=== PATIENT | female | born 1955 | race Hispanic/Latino ===

== ENCOUNTER 2024-03-21 05:54 | Day surgery (SDC) | payer MEDICARE ==
[2024-03-21] VITALS (12 sets, daily range): BP systolic 122–165; BP diastolic 41–57; PULSE 52–60; RESP 15–17; TEMP 96.6–97.9
[~2024-03-21] VITALS: Ht 157.5 cm; Wt 72.6 kg
[2024-03-21] MEDS: 0.9% NACL 500ML IV.SOLN 500 ML IV ONE (07:08)
[2024-03-21] MEDS ORDERED: CLON1PAT14 TD (07:16)
[2024-03-21] MEDS ORDERED: LORA0.5T83 PO (07:25)
[2024-03-21] MEDS ORDERED: SEVE0.8P PO (07:25)
[2024-03-21] MEDS ORDERED: HYDR25TA67 PO (07:25)
[2024-03-21] MEDS ORDERED: CLON1PAT14 PO (07:25)
[2024-03-21] MEDS ORDERED: OMEP40CA21 PO (07:25)
[2024-03-21] MEDS ORDERED: PRAM0.129 PO (07:25)
[2024-03-21] MEDS ORDERED: LORA10TA7 PO (07:25)
[2024-03-21] MEDS ORDERED: ATOR40TA69 PO (07:25)
[2024-03-21] MEDS ORDERED: LABE300T4 PO (07:25)
[2024-03-21] MEDS ORDERED: PROP1DRO4 OP (07:25)
[2024-03-21] MEDS ORDERED: ASPI-1197 PO (07:25)
[2024-03-21] MEDS ORDERED: OMEG100014 PO (07:25)
[2024-03-21] MEDS ORDERED: CITA-107 PO (07:25)
[2024-03-21] MEDS ORDERED: FOLI0.8T22 PO (07:25)
[2024-03-21] MEDS ORDERED: PLEC3TAB2 PO (07:25)
[2024-03-21] MEDS ORDERED: ACET-2743 PO (07:25)
[2024-03-21] MEDS ORDERED: FERR324T4 PO (07:25)
[2024-03-21] MEDS ORDERED: AMLO-258 PO (07:25)
[2024-03-21] MEDS ORDERED: proPOFol 10 MG/ML 20ML VIAL IV ONE ×2 (08:07)
== END 2024-03-21 09:50 | disposition home or self-care (01) ==
LOC: DAH 05:54
PROVIDERS: ATTEND Internal Medicine Gastroenterology
DX: Z12.11 Encounter for screening for malignant neoplasm of colon (principal); K26.3 Acute duodenal ulcer without hemorrhage or perforation; K31.84 Gastroparesis; I12.0 Hypertensive chronic kidney disease with stage 5 chronic kidney disease or end stage renal disease; E11.22 Type 2 diabetes mellitus with diabetic chronic kidney disease; E78.5 Hyperlipidemia, unspecified; N18.6 End stage renal disease; I25.10 Atherosclerotic heart disease of native coronary artery without angina pectoris; Z79.82 Long term (current) use of aspirin; F41.9 Anxiety disorder, unspecified; F32.A Depression, unspecified; Z99.2 Dependence on renal dialysis; Z95.5 Presence of coronary angioplasty implant and graft; Z90.49 Acquired absence of other specified parts of digestive tract; Z98.49 Cataract extraction status, unspecified eye; Z79.899 Other long term (current) drug therapy; Z53.8 Procedure and treatment not carried out for other reasons
CPT/HCPCS: 43239; 82948 ×2; G0121; J7040; J2704 ×2; A4620; A4215 ×2; A4223; A4222; A4221; A4663; A4606; J3490

== ENCOUNTER 2024-06-27 05:41 | Day surgery (SDC) | payer MEDICARE ==
[2024-06-27] VITALS (12 sets, daily range): BP systolic 120–163; BP diastolic 36–57; PULSE 54–61; RESP 15–19; TEMP 97.1–97.3
[~2024-06-27] VITALS: Ht 157.5 cm; Wt 83.0 kg
[~2024-06-27 05:41] MED LIST: ACET-2743 PO; AMLO-258 PO; ASPI-1197 PO; ATOR40TA69 PO; CITA-107 PO; CLON1PAT14 PO; CLON1PAT14 TD; FERR324T4 PO; FOLI0.8T22 PO; HYDR25TA67 PO; LABE300T4 PO; LORA0.5T83 PO; LORA10TA7 PO; OMEG100014 PO; OMEP40CA21 PO; PLEC3TAB2 PO; PRAM0.129 PO; PROP1DRO4 OP; SEVE0.8P PO
[2024-06-27] MEDS ORDERED: AMLO-257 PO (06:38)
[2024-06-27] MEDS ORDERED: FISH1CAP27 PO (06:41)
[2024-06-27] MEDS ORDERED: CLON1PAT14 TP (06:41)
[2024-06-27] MEDS ORDERED: BENZ150C8 PO (06:44)
[2024-06-27] MEDS ORDERED: PLEC3TAB2 PO (06:44)
[2024-06-27] MEDS ORDERED: ONDA-105 PO (06:44)
[2024-06-27] MEDS ORDERED: MIRT-22 PO (06:44)
[2024-06-27] MEDS: 0.9% NACL 500ML IV.SOLN 500 ML IV ONE (06:57)
[2024-06-27] MEDS ORDERED: proPOFol 10 MG/ML 20ML VIAL IV ONE ×4 (07:14→07:42)
[2024-06-27] MEDS ORDERED: LIDOCAINE HCL 1% 20 ML VIAL ONE (07:15)
--- NOTE | 2024-06-27 09:09 | NUR ---
FULL AND COMPLETE DISCHARGE INSTRUCTIONS PROVIDED BOTH VERBALLY AND IN WRITING. ALL QUESTIONS ANSWERED. VOICED UNDERSTANDING TO GI PROCEDURE AND FOLLOW UP. PIV REMOVED WITH CATHETER TIP INTACT. W/C WITH FAMILY TO POV TO HOME.
== END 2024-06-27 09:17 | disposition home or self-care (01) ==
LOC: ENDO 05:41 → DAH 05:41 → ENDO 09:17
PROVIDERS: ATTEND Internal Medicine Gastroenterology
DX: K59.04 Chronic idiopathic constipation (principal); D12.3 Benign neoplasm of transverse colon; D12.0 Benign neoplasm of cecum; D12.4 Benign neoplasm of descending colon; D12.2 Benign neoplasm of ascending colon; D64.9 Anemia, unspecified; K26.3 Acute duodenal ulcer without hemorrhage or perforation; K29.30 Chronic superficial gastritis without bleeding; K31.84 Gastroparesis; I12.0 Hypertensive chronic kidney disease with stage 5 chronic kidney disease or end stage renal disease; E11.22 Type 2 diabetes mellitus with diabetic chronic kidney disease; N18.6 End stage renal disease; I25.10 Atherosclerotic heart disease of native coronary artery without angina pectoris; F41.9 Anxiety disorder, unspecified; F32.A Depression, unspecified; E66.9 Obesity, unspecified; Z90.49 Acquired absence of other specified parts of digestive tract; Z98.49 Cataract extraction status, unspecified eye; Z68.31 Body mass index [BMI] 31.0-31.9, adult; Z79.899 Other long term (current) drug therapy
CPT/HCPCS: 82948 ×2; 45380; 45385; J7040; J2704 ×4; A4620; A4649; A4215; A4223; A7002; A4222; A4221; A4663; J7030; A4606; J3490

== ENCOUNTER 2024-06-28 08:23 | Emergency (ER) | payer MEDICARE ==
[~2024-06-28] VITALS: Ht 157.5 cm; Wt 83.0 kg
[~2024-06-28 08:23] MED LIST changes: +AMLO-257 PO; -AMLO-258 PO; +BENZ150C8 PO; -CLON1PAT14 PO; -CLON1PAT14 TD; +CLON1PAT14 TP; -FERR324T4 PO; +FISH1CAP27 PO; -LORA10TA7 PO; +MIRT-22 PO; -OMEG100014 PO; +ONDA-105 PO; -PROP1DRO4 OP; -SEVE0.8P PO
[2024-06-28 08:24] VITALS: BP 125/36; PULSE 55; RESP 16; TEMP 97.7
== END 2024-06-28 08:24 | disposition left against medical advice (07) ==
LOC: EDH 08:23
DX: K62.5 Hemorrhage of anus and rectum (principal); Z53.21 Procedure and treatment not carried out due to patient leaving prior to being seen by health care provider